=== PATIENT | male | born 1940 | race Caucasian/White ===

== ENCOUNTER 2023-10-16 16:49 | Inpatient (IN) ==
[2023-10-16] MEDS ORDERED: PHARMACY CONSULT - VANCOMYCIN XX SCH (18:00)
--- NOTE | 2023-10-16 18:04 | EKG ---
Test Reason : ACUTE OSTEOMYELITIS RIGHT FOOT AND ANKLE Blood Pressure : */* mmHG Vent. Rate : 78 BPM Atrial Rate : 78 BPM P-R Int : 228 ms QRS Dur : 148 ms QT Int : 418 ms P-R-T Axes : 54 -79 32 degrees QTc Int : 476 ms Sinus rhythm with 1st degree AV block Left axis deviation Nonspecific intraventricular block Inferior infarct , age undetermined Anterolateral infarct , age undetermined Abnormal ECG No previous ECGs available Confirmed by Patrick Lauren MD ([id number]) on 10/17/2023 7:27:29 AM Referred By: Confirmed By: Patrick Lauren MD
[2023-10-16 18:30] LABS: BASOPHILS # (AUTO) 0.1 X10^3/uL (0.0-0.1); EOSINOPHILS # (AUTO) 0.1 x10^3/uL (0.0-0.2); EOSINOPHILS % (AUTO) 0.8 % (0.9-2.9); HEMATOCRIT 39.4 % (42.0-54.0); LYMPHOCYTES # (AUTO) 2.2 X10^3/uL (1.3-2.9); LYMPHOCYTES % (AUTO) 16.3 % (21.0-51.0); MEAN CORPUSCULAR HEMOGLOBIN 28.9 pg (27.0-34.0); MEAN CORPUSCULAR HGB CONC 33.1 g/dL (33.0-35.0); MEAN CORPUSCULAR VOLUME 87.4 fL (80.0-100.0); MEAN PLATELET VOLUME 8.5 fL (7.4-11.0); MONOCYTES # (AUTO) 0.7 x10^3/uL (0.3-0.8); MONOCYTES % (AUTO) 5.4 % (0.0-13.0); NEUTROPHILS # (AUTO) 10.2 x10^3/uL (2.2-4.8); NEUTROPHILS % (AUTO) 76.5 % (42.0-75.0); PLATELET COUNT 226 X10^3/uL (150.0-450.0); RED CELL DISTRIBUTION WIDTH 14.1 % (11.6-16.5); WHITE BLOOD COUNT 13.3 X10^3/uL (3.6-10.0)
[2023-10-16 18:33] LABS: ALANINE AMINOTRANSFERASE 23 Units/L (12-78); ALBUMIN 3.5 g/dL (3.4-5.0); ALKALINE PHOSPHATASE 123 Units/L (46-116); ASPARTATE AMINO TRANSFERASE 26 Units/L (15-37); BLOOD UREA NITROGEN 21 mg/dL (7-18); CALCIUM 9.3 mg/dL (8.5-10.1); CARBON DIOXIDE 28.9 mmol/L (21-32); CHLORIDE 107 mmol/L (98-107); GLUCOSE 99 mg/dL (65-99); POTASSIUM 4.4 mmol/L (3.5-5.1); SODIUM 143 mmol/L (136-145); TOTAL PROTEIN 7.8 g/dL (6.4-8.2); eGFR NON BLACK RACES 56 (>60)
[2023-10-16] MEDS: NS 250 ML IV 25 ML IV PRN (20:19)
[2023-10-16] MEDS: LR 1,000 ML IV 1,000 ML IV SCH (20:19)
[2023-10-16] MEDS: VANCOMYCIN IV *PREMIX 1 G/200 ML BAG 1 G/200 ML PIGGYBACK IV SCH (20:19)
[2023-10-16] MEDS: ZOSYN VIAL 3.375 GRAMS 3.375 G in NS 100 ML IV 100 ML IV SCH (21:50)
[2023-10-16 23:00] VITALS: BMI 28.6
[2023-10-17] MEDS: HIBICLENS WASH EXT ONE (04:18)
[2023-10-17 04:51] LABS: BASOPHILS % (AUTO) 0.2 % (0.2-1.0); EOSINOPHILS # (AUTO) 0.1 x10^3/uL (0.0-0.2); EOSINOPHILS % (AUTO) 1.4 % (0.9-2.9); HEMATOCRIT 36.7 % (42.0-54.0); HEMOGLOBIN 12.2 g/dL (13.5-18.0); LYMPHOCYTES # (AUTO) 2.1 X10^3/uL (1.3-2.9); LYMPHOCYTES % (AUTO) 25.3 % (21.0-51.0); MEAN CORPUSCULAR HEMOGLOBIN 29.2 pg (27.0-34.0); MEAN CORPUSCULAR HGB CONC 33.3 g/dL (33.0-35.0); MEAN CORPUSCULAR VOLUME 87.7 fL (80.0-100.0); MEAN PLATELET VOLUME 8.6 fL (7.4-11.0); MONOCYTES # (AUTO) 0.5 x10^3/uL (0.3-0.8); NEUTROPHILS # (AUTO) 5.7 x10^3/uL (2.2-4.8); NEUTROPHILS % (AUTO) 67.1 % (42.0-75.0); PLATELET COUNT 195 X10^3/uL (150.0-450.0); RED BLOOD COUNT 4.19 X10^6/uL (4.7-6.0); RED CELL DISTRIBUTION WIDTH 14.3 % (11.6-16.5); WHITE BLOOD COUNT 8.5 X10^3/uL (3.6-10.0)
[2023-10-17 04:58] LABS: ALANINE AMINOTRANSFERASE 20 Units/L (12-78); ALBUMIN 2.9 g/dL (3.4-5.0); ALKALINE PHOSPHATASE 116 Units/L (46-116); ASPARTATE AMINO TRANSFERASE 14 Units/L (15-37); BLOOD UREA NITROGEN 21 mg/dL (7-18); CALCIUM 8.7 mg/dL (8.5-10.1); CARBON DIOXIDE 27.7 mmol/L (21-32); CHLORIDE 108 mmol/L (98-107); COR CA(FOR HYPOALB) 9.6 mg/dL (8.5-10.1); COR NA(FOR HYPERGLY) 144 mmol/L (136-145); CREATININE 1.28 mg/dL (0.70-1.30); GLUCOSE 115 mg/dL (65-99); POTASSIUM 3.7 mmol/L (3.5-5.1); SODIUM 144 mmol/L (136-145); TOTAL PROTEIN 6.8 g/dL (6.4-8.2); eGFR NON BLACK RACES 57 (>60)
[2023-10-17] MEDS ORDERED: CONSULT PHARMACY - POTASSIUM & MAGNESIUM XX SCH (06:00)
[2023-10-17] MEDS: SYNTHROID 75 mcg TAB PO SCH (06:24)
[2023-10-17] MEDS ORDERED: SYNTHROID 75 mcg TAB PO SCH (06:30)
--- NOTE | 2023-10-17 07:07 | RAD ---
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 Heart is upper limits normal in size. No congestive heart failure is noted. Leatha are normal. Aorta is calcified. Lungs are free of acute infiltrates. No pleural effusions identified. Bony thorax is unremarkable.IMPRESSION:Lungs clearTHIS IS AN ELECTRONICALLY VERIFIED FINAL REPORT10/17/2023 7:04 AM - Electronically signed by Blas Spencer MD
[2023-10-17] MEDS: VANCOMYCIN IV *PREMIX 1.25 G/250 ML BAG 1.25 G/250 ML PIGGYBACK IV SCH (08:57)
[2023-10-17] MEDS ORDERED: K-DUR TAB 20 MEQ PO SCH (09:00)
[2023-10-17] MEDS: ASPIRIN EC 81 MG PO SCH (09:14)
[2023-10-17] MEDS: PLAVIX PO SCH (09:14)
[2023-10-17] MEDS: BETADINE SOLN ONE (10:38)
[2023-10-17] MEDS: XYLOCAINE 1% and EPINEPHRINE 1:100,000 ONE (10:45)
[2023-10-17] MEDS: K-RIDER 10 MEQ/100 ML WATER 10 MEQ/100 ML BAG IV SCH (11:47)
[2023-10-17 12:19] VITALS: PULSE 68
[2023-10-17] MEDS: MICRO K EXTEN CAP 10 MEQ PO ONE (12:53)
[2023-10-17 13:14] VITALS: BP 141/70; RESP 21; TEMP 97.8; O2SAT 100
[2023-10-18] MEDS ORDERED: PHARMACY COMMENT IV NR (20:00)
[2023-10-19] MEDS ORDERED: PHARMACY COMMENT IV ONE (03:00)
== END 2023-10-17 13:40 | disposition home or self-care (01) | DRG 505 ==
LOC: ICU 17:08
PROVIDERS: ADMIT Obstetrics & Gynecology Obstetrics; ATTEND Obstetrics & Gynecology Obstetrics